=== PATIENT | male | born 1975 | race Caucasian/White ===

== ENCOUNTER 2017-05-06 11:46 | Emergency (ER) | payer SELFPAY ==
[2017-05-06 12:04] VITALS: BP 116/71; PULSE 67; TEMP 98.2; BMI 25.8
[2017-05-06] MEDS ORDERED: ACETAMINOPHEN 1000 MG/100 ML VIAL (NON FORMULARY) IVPB ONE (13:54)
[2017-05-06] MEDS ORDERED: SODIUM CHLORIDE 0.9% 1000 ML INFUS.BAG IV ONE (13:54)
[2017-05-06] MEDS ORDERED: METOCLOPRAMIDE HCL INJECTION 10 MG/2 ML VIAL IVPB ONE (13:54)
[2017-05-06] MEDS ORDERED: ACETAMINOPHEN INJECTION 100 ML IVPB ONE (14:09)
[2017-05-06] MEDS ORDERED: METOCLOPRAMIDE HCL INJECTION 10 MG/2 ML VIAL ONE (14:09)
[2017-05-06 14:21] LABS: BASOPHIL 0.5 % (0-2.0); EOSINOPHIL 0.3 % (0-4.5); MCH 28.3 pg (25.7-33.7); MCHC 33.8 g/dl (32.0-35.9); MEAN CELL VOLUME 83.7 fl (80-96); MEAN PLT VOLUME 8.8 fl (7.5-11.1); NEUTROPHILS 87.7 % (42.8-82.8); PLATELET COUNT 216 K/MM3 (134-434); RDW 12.9 % (11.9-15.9); WHITE BLOOD COUNT 11.6 K/mm3 (4.0-10.0)
[2017-05-06 14:45] LABS: ALBUMIN 4.4 g/dl (3.4-5.0); ANION GAP 6 (8-16); BILIRUBIN,TOTAL 0.4 mg/dL (0.2-1.0); CALCIUM 9.4 mg/dL (8.5-10.1); CO2 28 mmol/L (21-32); CREATININE 0.8 mg/dL (0.7-1.3); GLUCOSE,RANDOM 112 mg/dL (74-106); SGOT/AST 10 U/L (15-37); SGPT/ALT 20 U/L (12-78); TOT PROT 7.4 g/dl (6.4-8.2)
[2017-05-06 14:46] LABS: ALK PHOS 51 U/L (45-117)
[2017-05-06] MEDS ORDERED: KETOROLAC TROMETHAMINE 30 MG/1 ML VIAL IVPUSH ONE (16:01)
--- NOTE | 2017-05-06 16:01 | PDOC ---
History of Present Illness - General History Source: Patient Exam Limitations: No Limitations <Chayo Peng - Last Filed: 05/06/17 15:57> - General History Source: Patient - History of Present Illness Initial Comments: 05/06/17 16:02 42 y/o M with a PMHx of migraines presents to the ED with a right frontal headache since yesterday. He reports associated chills, nausea, vomiting. He also reports photophobia and lightheadedness. Patient states this headache is worse than usual. He took Naproxen with no relief. Denies trauma. Denies numbness, tingling, weakness. <Jaycee Hopkins - Last Filed: 05/06/17 16:03> - General Chief Complaint: Headache Stated Complaint: VOMITING, HEADACHE Past History - Past Medical History Other medical history: migrains headaches, but does not see neurology for - Immunization History Immunization Up to Date: Yes - Suicide/Smoking/Psychosocial Hx Smoking Status: No Smoking History: Never smoked Number of Cigarettes Smoked Daily: 0 Hx Alcohol Use: No Drug/Substance Use Hx: No <DanishChayo - Last Filed: 05/06/17 15:57> <Jaycee Hopkins - Last Filed: 05/06/17 16:03> - Past Medical History Allergies/Adverse Reactions: Allergies Allergy/AdvReac Type Severity Reaction Status Date / Time No Known Allergies Allergy Verified 05/06/17 11:59 Home Medications: Ambulatory Orders No Home Medications 0 dose .ROUTE UTDICT 05/03/13 Review of Systems - Review of Systems Comments:: 05/06/17 16:02 GENERAL/CONSTITUTIONAL: (+) chills. No fever.. No weakness. HEAD, EYES, EARS, NOSE AND THROAT: No change in vision. No ear pain or discharge. No sore throat. CARDIOVASCULAR: No chest pain or shortness of breath. RESPIRATORY: No cough, wheezing, or hemoptysis. GASTROINTESTINAL: (+) nausea, vomiting, No diarrhea or constipation. GENITOURINARY: No dysuria, frequency, or change in urination. MUSCULOSKELETAL: No joint or muscle swelling or pain. No neck or back pain. SKIN: No rash NEUROLOGIC: (+) headache, lightheadedness. No vertigo, loss of consciousness, or change in strength/sensation. ENDOCRINE: No increased thirst. No abnormal weight change. HEMATOLOGIC/LYMPHATIC: No anemia, easy bleeding, or history of blood clots. ALLERGIC/IMMUNOLOGIC: No hives or skin allergy. <Tawanna Hopkinsobhan Isaias - Last Filed: 05/06/17 16:03> *Physical Exam - Vital Signs Last Vital Signs Temp Pulse Resp BP Pulse Ox 98.2 F 67 20 116/71 100 05/06/17 11:59 05/06/17 11:59 05/06/17 11:59 05/06/17 11:59 05/06/17 11:59 <Chayo Peng - Last Filed: 05/06/17 15:57> - Vital Signs Last Vital Signs Temp Pulse Resp BP Pulse Ox 98.2 F 67 20 116/71 100 05/06/17 11:59 05/06/17 11:59 05/06/17 11:59 05/06/17 11:59 05/06/17 11:59 - Physical Exam Comments: 05/06/17 16:02 GENERAL: Awake, alert, and fully oriented, in no acute distress HEAD: No signs of trauma EYES: PERRLA, EOMI, sclera anicteric, conjunctiva clear ENT: Auricles normal inspection, nares patent, oropharynx clear without exudates. Moist mucosa NECK: Normal ROM, supple, no lymphadenopathy, JVD, or masses LUNGS: Breath sounds equal, clear to auscultation bilaterally. No wheezes, and no crackles HEART: Regular rate and rhythm, normal S1 and S2, no murmurs, rubs or gallops ABDOMEN: Soft, nontender, normoactive bowel sounds. No guarding, no rebound. No masses EXTREMITIES: Normal range of motion, no edema. No clubbing or cyanosis. No cords, erythema, or tenderness NEUROLOGICAL: Cranial nerves II through XII grossly intact. Speech is clear. 5/ 5 strength. SKIN: Warm, Dry, normal turgor, no rashes or lesions noted. <HopkinsJaycee - Last Filed: 05/06/17 16:03> ED Treatment Course - LABORATORY CBC & Chemistry Diagram: 05/06/17 14:00 05/06/17 14:00 - ADDITIONAL ORDERS Additional order review: Laboratory Results 05/06/17 14:00 Sodium 139 Potassium 3.8 Chloride 105 Carbon Dioxide 28 D Anion Gap 6 L BUN 18 Creatinine 0.8 Creat Clearance w eGFR > 60 Random Glucose 112 H Calcium 9.4 Total Bilirubin 0.4 AST 10 L D ALT 20 D Alkaline Phosphatase 51 Total Protein 7.4 Albumin 4.4 05/06/17 14:00 RBC 5.07 MCV 83.7 MCHC 33.8 RDW 12.9 MPV 8.8 Neutrophils % 87.7 H Lymphocytes % 8.5 Monocytes % 3.0 L Eosinophils % 0.3 Basophils % 0.5 - Medications Given in the ED: ED Medications Discontinued Medications Generic Name Dose Route Start Last Admin Trade Name Jeri PRN Reason Stop Dose Admin Acetaminophen 1,000 mg 05/06/17 13:54 05/06/17 14:23 Ofirmev Injection - IVPB 05/06/17 13:55 1,000 mg ONCE ONE Administration Diphenhydramine HCl 25 mg 05/06/17 13:55 05/06/17 14:24 Benadryl Injection - IVPB 05/06/17 13:56 25 mg ONCE ONE Administration Metoclopramide HCl 10 mg 05/06/17 13:54 05/06/17 14:24 Reglan Injection - IVPB 05/06/17 13:55 10 mg ONCE ONE Administration Sodium Chloride 1,000 ml 05/06/17 13:54 05/06/17 14:22 Normal Saline - IV 05/06/17 13:55 1,000 ml ONCE ONE Administration <Chayo Peng - Last Filed: 05/06/17 15:57> - LABORATORY CBC & Chemistry Diagram: 05/06/17 14:00 05/06/17 14:00 - ADDITIONAL ORDERS Additional order review: Laboratory Results 05/06/17 14:00 Sodium 139 Potassium 3.8 Chloride 105 Carbon Dioxide 28 D Anion Gap 6 L BUN 18 Creatinine 0.8 Creat Clearance w eGFR > 60 Random Glucose 112 H Calcium 9.4 Total Bilirubin 0.4 AST 10 L D ALT 20 D Alkaline Phosphatase 51 Total Protein 7.4 Albumin 4.4 05/06/17 14:00 RBC 5.07 MCV 83.7 MCHC 33.8 RDW 12.9 MPV 8.8 Neutrophils % 87.7 H Lymphocytes % 8.5 Monocytes % 3.0 L Eosinophils % 0.3 Basophils % 0.5 - Medications Given in the ED: ED Medications Discontinued Medications Generic Name Dose Route Start Last Admin Trade Name Jeri PRN Reason Stop Dose Admin Acetaminophen 1,000 mg 05/06/17 13:54 05/06/17 14:23 Ofirmev Injection - IVPB 05/06/17 13:55 1,000 mg ONCE ONE Administration Diphenhydramine HCl 25 mg 05/06/17 13:55 05/06/17 14:24 Benadryl Injection - IVPB 05/06/17 13:56 25 mg ONCE ONE Administration Metoclopramide HCl 10 mg 05/06/17 13:54 05/06/17 14:24 Reglan Injection - IVPB 05/06/17 13:55 10 mg ONCE ONE Administration Sodium Chloride 1,000 ml 05/06/17 13:54 05/06/17 14:22 Normal Saline - IV 05/06/17 13:55 1,000 ml ONCE ONE Administration <Jaycee Hopkins - Last Filed: 05/06/17 16:03> Medical Decision Making - Medical Decision Making 05/06/17 15:57 42 yo male with h/o migraines, here with right frontal headache, throbbing in nature, no n/v. does have photophobia. has had similar migraines in the past. no head trauma no f/c took naproxen, minimal relief. no weakness. no change to vision. on exam awake alert lungs clear heart rrr no mrg. abd soft nt nd. ext wwp . nuero alert oriented x 3 5/5 al four ext. sensatio intact. speech clear. plan : likley migraine. r/o electrlyte abnormality anemia or signs of infection. planto treat with reglan, ivf, tylenol reassess. likely outpt referral to nuerology. 05/06/17 15:59 pt reassessed. feeling much improved. will dc with followup with nuerology. given info for dr. Pelaez. <Chayo Peng - Last Filed: 05/06/17 15:57> *DC/Admit/Observation/Transfer <Chayo Peng - Last Filed: 05/06/17 15:57> - Attestations Scribe Attestion: 05/06/17 16:03 Documentation prepared by Jaycee Hopkins, acting as medical appointment clerk for Chayo Peng MD. <Jaycee Hopkins - Last Filed: 05/06/17 16:03> Diagnosis at time of Disposition: Migraine - Discharge Dispostion Disposition: HOME Condition at time of disposition: Improved - Referrals Referrals: Jay Lugo MD [Primary Care Provider] - Roel Pelaez DO [Staff Physician] - - Patient Instructions Printed Discharge Instructions: Migraine -- Adult Additional Instructions: take ibuprofen 400 mg every 8 hours as needed for pain. return for any weakness or concerns. follow up with nuerologist, DR Pelaez, see referral information and call to schedule. also you should follow up with your primary doctor.
[2017-05-06] MEDS ORDERED: KETOROLAC TROMETHAMINE 30 MG/1 ML VIAL ONE (16:03)
== END 2017-05-06 16:22 | disposition home or self-care (01) ==
LOC: JER 11:46
PROC: 3E033NZ Introduction of Analgesics, Hypnotics, Sedatives into Peripheral Vein, Percutaneous Approach (ICD-10-PCS; principal; 2017-05-06)
PROC: 3E0333Z Introduction of Anti-inflammatory into Peripheral Vein, Percutaneous Approach (ICD-10-PCS; 2017-05-06)
PROC: 3E033GC Introduction of Other Therapeutic Substance into Peripheral Vein, Percutaneous Approach (ICD-10-PCS; 2017-05-06)
PROC: 3E033GC Introduction of Other Therapeutic Substance into Peripheral Vein, Percutaneous Approach (ICD-10-PCS; 2017-05-06)
DX: G43.909 Migraine, unspecified, not intractable, without status migrainosus (principal)
CPT/HCPCS: 36415; 80053; 85025; 99282-25

== ENCOUNTER 2019-07-28 15:31 | Emergency (ER) | payer OTHER ==
[2019-07-28 15:36] VITALS: BP 101/71; PULSE 74; TEMP 98.4; BMI 27.6
--- NOTE | 2019-07-28 15:56 | PDOC ---
Attending Attestation - Resident Resident Name: Edison Sanchez - ED Attending Attestation I have performed the following: I have examined & evaluated the patient, The case was reviewed & discussed with the resident, I agree w/resident's findings & plan, Exceptions are as noted - HPI HPI: 07/28/19 15:54 44y M hx R sided hernia that was repaired and L sided hernia that was being monitored, presenting with worsening L lower quadrant pain that worsend around 9am. Patient states he frequently gets this pain in the morning Usually after bowel movement but then resolves after a couple of hours. The patient denies any associated fever, chills, nausea, vomiting, Chest pain, back pain, shortness of breath. Patient notes the pain is similar to previous however unlike in the past it has not resolved. Patient also notes that the pain seems to be worse when he is coughing or sneezing Or bearing down. 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 The patient went to see a surgeon approximately 1 year ago. GENERAL: The patient is awake, alert, and fully oriented, Nontoxic - in no acute distress. HEAD: Normocephalic, atraumatic. EYES: extraocular movements intact, sclera anicteric, conjunctiva clear. ENT: Normal voice, Moist mucous membranes. NECK: Normal range of motion, supple LUNGS: Breath sounds equal, clear to auscultation bilaterally. No wheezes, no rhonchi, no rales. HEART: Regular rate and rhythm, normal S1 and S2 without murmur, rub or gallop. ABDOMEN: Soft, nontender, No guarding, no rebound. No CVA tenderness, No masses palpable EXTREMITIES: Normal range of motion, no edema. NEUROLOGICAL: No facial assymetry, Normal speech, PSYCH: Normal mood, normal affect. SKIN: Warm, Dry, normal turgor, On exam the patient is well-appearing, no acute distress nonfocal physical exam. - Physicial Exam PE: 07/28/19 18:10 See above - Medical Decision Making 07/28/19 18:10 Patient's labs were reviewed and are unremarkable the patient received a CT to rule out hernia Versus kidney stone. CT is negative Or acute process however there are some fat-containing hernias noted which is likely the cause of his pain, the patient is feeling improved abdomen was reassessed it is soft and nontender We will have the patient follow-up with surgery as an outpatient Return precautions were discussed
--- NOTE | 2019-07-28 16:05 | PDOC ---
History of Present Illness - General Chief Complaint: Pain, Acute Stated Complaint: ABD PAIN Time Seen by Provider: 07/28/19 15:36 - History of Present Illness Initial Comments: 07/28/19 17:39 HPI: 44 y/o M with hx of pre-DM and BL inguinal hernia s/p RIH repair presenting with left hernia pain. He states he was diagnosed with a LIH a year ago but over the past few months he states he has been having pain in the LLQ with radiation into the scrotum. Pain lasts couple hours and self resolves. He has never taken motrin or tylenol for pain control. This morning at 9am he states the pain worsened and he was concerned for something getting stuck in the hernia. Pain was 7/10 and is crampy in nature. Worse with standing, coughing and no alleviating factors. He denies PO intolerance, n/v, diarrhea, constipation, dysuria, hematuria, chest pain, SOB. PMHx: as noted above ROS: as noted SHx: Denies tobacco use; no alcohol use; no rec drugs Allergies: NKDA ROS: GENERAL/CONSTITUTIONAL: No fever or chills. No weakness. HEAD, EYES, EARS, NOSE AND THROAT: No change in vision. No ear pain or discharge. No sore throat. CARDIOVASCULAR: No chest pain or shortness of breath RESPIRATORY: No cough, wheezing, or hemoptysis. GASTROINTESTINAL: No nausea, vomiting, diarrhea or constipation. GENITOURINARY: No dysuria, frequency, or change in urination. MUSCULOSKELETAL: No joint or muscle swelling or pain. No neck or back pain. SKIN: No rash NEUROLOGIC: No headache, vertigo, loss of consciousness, or change in strength/ sensation. ENDOCRINE: No increased thirst. No abnormal weight change HEMATOLOGIC/LYMPHATIC: No anemia, easy bleeding, or history of blood clots. ALLERGIC/IMMUNOLOGIC: No hives or skin allergy. PE: GENERAL: Awake, alert, and fully oriented, no acute distress HEAD: No signs of trauma, normocephalic, atraumatic EYES: EOMI, sclera anicteric, conjunctiva clear ENT: Auricles normal inspection, hearing grossly normal, nares patent, oropharynx clear without exudates. Moist mucosa NECK: Normal ROM, no lymphadenopathy LUNGS: No increased work of breathing, symmetrical chest rise, clear to auscultation bilaterally, no wheezes, crackles or rhonchi HEART: Regular rate and rhythm, normal S1 and S2, no murmurs, peripheral pulses 2+ and equal bilaterally. ABDOMEN: Soft, nondistended, nontender, normoactive bowel sounds. No guarding, no rebound. No masses. No CVAT. no inguinal hernia appreciated on exam, no testicular masses MUSCULOSKELETAL: Normal inspection, FROM NEUROLOGICAL: Cranial nerves II through XII grossly intact. Normal speech, normal gait, no focal sensorimotor deficits SKIN: Warm, Dry, normal turgor, no rashes or lesions noted Past History - Past Medical History Allergies/Adverse Reactions: Allergies Allergy/AdvReac Type Severity Reaction Status Date / Time No Known Allergies Allergy Verified 07/28/19 15:32 Home Medications: Ambulatory Orders No Home Medications 0 dose .ROUTE UTDICT 05/03/13 COPD: No Other medical history: DENIES - Immunization History Immunization Up to Date: Yes - Psycho Social/Smoking Cessation Hx Smoking Status: No Smoking History: Never smoked Number of Cigarettes Smoked Daily: 0 Hx Alcohol Use: No Drug/Substance Use Hx: No *Physical Exam - Vital Signs Last Vital Signs Temp Pulse Resp BP Pulse Ox 98.4 F 74 16 101/71 100 07/28/19 15:31 07/28/19 15:31 07/28/19 15:31 07/28/19 15:31 07/28/19 15:31 ED Treatment Course - LABORATORY CBC & Chemistry Diagram: 07/28/19 16:40 07/28/19 16:40 - RADIOLOGY Radiology Studies Ordered: Category Date Time Status ABDOMEN & PELVIS CT W/O CONTR [CT] Stat CT Scan 07/28/19 16:01 Ordered Medical Decision Making - Medical Decision Making 07/28/19 18:30 44 y/o M with hx of pre-DM and BL inguinal hernia s/p RIH repair presenting with left hernia pain. VSS, AF. PE unremarkable -cbc, cmp, lipase, ua -ct abd/pel 07/28/19 18:31 ct with BL inguinal hernias containing fat, no evidence of SBO or inflammation 07/28/19 18:31 discussed with patient results; he reports previous eval with surgeon and was recommended for return to surgery clinic for eval if pain occurs. patient has no additional questions. recommended tyl/motrin for pain control. discussed return pcxns Discharge - Discharge Information Problems reviewed: Yes Clinical Impression/Diagnosis: Inguinal hernia Qualifiers: Obstruction and gangrene presence: without obstruction or gangrene Laterality: bilateral Recurrence: not specified as recurrent Qualified Code(s): K40.20 - Bilateral inguinal hernia, without obstruction or gangrene, not specified as recurrent Condition: Stable Disposition: HOME - Follow up/Referral - Patient Discharge Instructions Additional Instructions: Additional Instructions: Please return to the emergency department with any new or worsening symptoms or concerns including worsening pain, persistent vomiting, inability to tolerate food or liquid, inability to have a bowel movement. Please follow up with your primary care physician as needed for further evaluation. You may take tylenol 650mg every 6 hours as needed for pain control as well as motrin 400-600mg every 6 hours for pain control staggered. (Tylenol 9am, 3pm, 9pm, etc and motrin 12pm, 6pm, 12am, etc) - Post Discharge Activity
[2019-07-28 17:08] LABS: ALBUMIN 4.3 g/dl (3.4-5.0); BILIRUBIN,TOTAL 0.6 mg/dl (0.2-1); CALCIUM 8.8 mg/dl (8.5-10); CREATININE 0.9 mg/dl (0.55-1.3); POTASSIUM 4.1 mmol/L (3.5-5.1); TOT PROT 7.3 g/dl (6.4-8.2)
[2019-07-28 17:13] LABS: BASO % 0.5 % (0-2.0); EOS % 2.3 % (0-4.5); HEMATOCRIT 39.9 % (35.4-49); HEMOGLOBIN 13.5 GM/dl (11.7-16.9); LYMPH % 26.5 % (8-40); MCHC 33.9 g/dl (32.0-35.9); MEAN CELL VOLUME 85.6 fl (80-96); MEAN PLT VOLUME 9.1 fl (7.5-11.1); MONO % 8.2 % (3.8-10.2); NEUT % 62.5 % (42.8-82.8); PLATELET COUNT 244 K/MM3 (134-434); RBC 4.66 M/mm3 (4.00-5.60); RDW 12.2 % (11.9-15.9); WHITE BLOOD COUNT 8.6 K/mm3 (4.0-10.8)
== END 2019-07-28 17:53 | disposition home or self-care (01) ==
LOC: FER 15:31
DX: K40.20 Bilateral inguinal hernia, without obstruction or gangrene, not specified as recurrent (principal); R73.03 Prediabetes
CPT/HCPCS: 36415; 74176-TC; 80053; 81003; 81015; 83690; 85025; 99282-25